=== PATIENT | male | born 1955 | race Caucasian/White ===

== ENCOUNTER 2022-10-31 12:21 | Emergency (ER) | payer OTHER ==
[~2022-10-31] VITALS: Ht 165.1 cm; Wt 84.8 kg
[2022-10-31 12:52] VITALS: BP 103/65
[2022-10-31] MEDS ORDERED: KETOROLAC 15 MG/ML VIAL IVP ONE (13:00)
[2022-10-31] MEDS ORDERED: NACL 0.9% 1,000 ML IV ONE (13:00)
[2022-10-31 14:40] LABS: BASOPHILS % (AUTO) 0.4 % (0.0-2.0); EOSINOPHILS % (AUTO) 0.4 % (0.0-4.0); HEMATOCRIT 27.2 % (36-52); HEMOGLOBIN 9.4 g/dL (12.0-18.0); LYMPHOCYTES # (AUTO) 0.9 K/uL (2.0-11.5); LYMPHOCYTES % (AUTO) 12.5 % (20.5-51.1); MEAN CORPUSCULAR HEMOGLOBIN 33 pg (27-31); MEAN CORPUSCULAR HGB CONC 34 g/dL (33-37); MEAN CORPUSCULAR VOLUME 96.7 fL (80-94); MONOCYTES # (AUTO) 0.8 K/uL (0.8-1.0); MONOCYTES % (AUTO) 11.4 % (1.7-9.3); NEUTROPHILS # (AUTO) 5.6 K/uL (1.8-7.7); NEUTROPHILS % (AUTO) 75.3 % (42.2-75.2); PLATELET COUNT (AUTO) 291 K/uL (140-450); RED BLOOD CELL COUNT(AUTO) 2.81 MIL/uL (4.20-6.10); RED CELL DISTRIBUTION WIDTH 14.1 % (11.6-13.7); WHITE BLOOD COUNT (AUTO) 7.4 K/uL (4.8-10.8)
[2022-10-31 15:14] LABS: PROTHROMBIN TIME 10.6 secs (10.8-13.4)
[2022-10-31 15:19] LABS: LIPASE 344 U/L (73-393)
[2022-10-31 15:57] LABS: ALBUMIN 2.2 g/dL (3.4-5.0); CREATININE 1.1 mg/dL (0.6-1.3); TOTAL BILIRUBIN 0.5 mg/dL (0.0-1.0)
[2022-10-31 16:02] LABS: ANION GAP 7.8 (8-16); CARBON DIOXIDE 46.4 mmol/L (21-32); POTASSIUM 2.2 mmol/L (3.5-5.1)
[2022-10-31] MEDS ORDERED: POTASSIUM CHLORIDE 10 MEQ TABER PO ONE (17:30)
--- NOTE | 2022-10-31 17:52 | NUR ---
IV removed, catheter intact and site benign. Applied folded 4x4 gauze and tape to stop bleeding.
[2022-10-31 18:10] VITALS: BP 117/72
--- NOTE | 2022-10-31 18:10 | NUR ---
Patient discharged with v/s stable. Written and verbal after care instructions FOR [facility]PO[facility] given and explained. Patient verbalized understanding. Wheel Chair Assisted with to LOBBY. All questions addressed prior to discharge. Advised to follow up with PMD. FOOD AND HOMELESS PACKED PROVIDED
== END 2022-10-31 18:10 | disposition home or self-care (01) ==
LOC: MED 12:21
DX: R53.1 Weakness (principal); F10.10 Alcohol abuse, uncomplicated; I10 Essential (primary) hypertension; F17.210 Nicotine dependence, cigarettes, uncomplicated; Z79.899 Other long term (current) drug therapy; Y90.9 Presence of alcohol in blood, level not specified
CPT/HCPCS: 36415; 71045; 80053; 83690; 83880; 84484; 85025; 85610; 85730; 93005; 96361; 96374; 99285; G0482; J1885; J7030